=== PATIENT | female | born 1940 | race Caucasian/White ===

== ENCOUNTER 2017-03-06 18:54 | Emergency (ER) | payer OTHER ==
[~2017-03-06] VITALS: Ht 160 cm; Wt 63.5 kg
[~2017-03-06 18:54] MED LIST: AMBEREN PO; AVELOX ABC PAC400 MG; AVINZA 60 MG CA60 M1 PO; CALCIUM 600 +1 EAC1 PO; CIPRO500 MG PO; CIPROFLOXACIN500 M1 PO; FISH OIL 1,0001 EAC5 PO; FISH OIL 1,2001 EAC3 PO; FLAX OIL1000 MG PO; FLONASE 0.05%50 MCG NASAL; HYDROCODON-ACE1 EAC1 PO; HYDROCODON-ACE1 EAC8 PO; IBUPROFEN 800800 M1 PO; LEVOXYL75 MCG PO; MELATONIN5 M1 PO; MORPHINE SULFAT60 MG PO; MS CONTIN 30 MG30 M1 PO; MS CONTIN15 MG PO; MULTIVITAMINS1 EAC7 PO; NEURONTIN 400400 M1 PO; NEURONTIN 400M400 M2 PO; SALINE FLUSH; VITAMIN B-1250 MG PO; VITAMIN B-12500 MCG PO; VITAMIN B-625 MG PO; XANAX 0.5 MG0.5 M1 PO; ZOFRAN ODT4 MG PO; ZOLOFT25 MG PO
[2017-03-06 20:08] LABS: HEMATOCRIT 44.3 % (37.0-47.0); HEMOGLOBIN 14.6 gm/dL (12.0-15.0); MCH 29.2 pg (26.0-34.0); MCHC 32.9 g/dL (28.0-37.0); MCV 88.8 fL (80.0-100.0); PLATELET COUNT 258 thou/uL (150-400); RBC 4.99 mil/uL (4.20-5.00); RDW 12.7 % (10.5-14.5); WBC 14.2 thou/uL (4.0-11.0)
[2017-03-06 20:09] LABS: MANUAL DIFF YES
[2017-03-06 20:11] LABS: ANION GAP 12 mmol/L (7-16); BUN 24 mg/dL (7-18); CALCIUM 9.1 mg/dL (8.5-10.1); CHLORIDE 106 mmol/L (98-107); CO2 24 mmol/L (21-32); CREATININE 0.7 mg/dL (0.6-1.0); GLUCOSE 178 mg/dL (74-106); POTASSIUM 4.1 mmol/L (3.5-5.1); SODIUM 142 mmol/L (136-145)
[2017-03-06 20:16] LABS: ALBUMIN 3.7 g/dL (3.4-5.0); ALKALINE PHOSPHATASE 151 U/L (46-116); DIRECT BILIRUBIN < 0.1 mg/dL (<0.1-0.3); SGOT 45 U/L (15-37); SGPT 47 U/L (30-65); TOTAL BILIRUBIN 0.7 mg/dL (<0.1-1.0); TOTAL PROTEIN 7.4 g/dL (6.4-8.2)
[2017-03-06 20:33] LABS: ABSOLUTE NEUTROPHILS 13.2 thou/uL (1.4-8.2); TOTAL CELL COUNT 100
[2017-03-06 21:47] LABS: URINE BILIRUBIN NEGATIVE (Negative); URINE BLOOD TRACE (Negative); URINE COLOR YELLOW; URINE GLUCOSE-RANDOM* NEGATIVE (Negative); URINE KETONES NEGATIVE (Negative); URINE LEUKOCYTES-REFLEX TRACE (Negative); URINE PROTEIN (DIPSTICK) NEGATIVE (Negative); URINE UROBILINOGEN 0.2 E.U./dl (0.2-1.0)
[2017-03-06] MEDS ORDERED: ZOFRAN ODT4 MG PO (22:09)
== END 2017-03-06 22:25 | disposition home or self-care (01) ==
LOC: ER 18:54
PROVIDERS: Emergency Medicine
DX: R10.9 Unspecified abdominal pain (principal); R19.7 Diarrhea, unspecified; R11.2 Nausea with vomiting, unspecified; E78.5 Hyperlipidemia, unspecified; Z90.49 Acquired absence of other specified parts of digestive tract; Z87.442 Personal history of urinary calculi; Z88.6 Allergy status to analgesic agent; Z88.8 Allergy status to other drugs, medicaments and biological substances; Z88.0 Allergy status to penicillin; Z88.1 Allergy status to other antibiotic agents